=== PATIENT | male | born 1990 | race Caucasian/White ===

== ENCOUNTER → 2016-08-04 | Outpatient (CLI) | payer OTHER ==
[~2016-08-04] MED LIST: ADVIL200 M2 PO; NAPROXEN PO; NO MEDICATIONS; PHENERGAN PO
--- NOTE | ~2016-08-04 | US6 ---
[facility] A Service [facility] RADIOLOGY TEXT RESULTS PATIENT: VEE BATEMAN LOCATION: [facility] : [birth year] UNIT #: [id number] AGE: [address]: Carey Broussard APRN SEX: M ORDER DR: [id number] [place] [id number] O MR#: [id number] Acc #: [id number] NAME: VEE BATEMAN : 1990 SEX: M STUDY DATE/TIME: 08/04/2016 9:18 UNIT: [facility] ROOM: STUDY DESCRIPTION: US Abdominal Limited Attending Physician: Carey Broussard A.P.R.N. Referring Physician: Carey Broussard A.P.R.N. Ordering Physician: Carey Broussard A.P.R.N. Primary Care Physician: Carey Broussard A.P.R.N. MEDICAL IMAGING REPORT This report is preliminary unless electronic signature is present. EXAM Right upper quadrant ultrasound, 08/04/16 HISTORY A 34-month history of right upper quadrant abdominal pain. FINDINGS Hepatic parenchymal echotexture is normal. There is no intrahepatic biliary ductal dilatation. Survey images of the pancreas are normal. No hepatic mass is seen. The gallbladder is normal without stone, wall thickening of pericholecystic fluid. The extrahepatic common duct is normal in caliber. The right kidney is normal in size and echotexture without solid mass, calcification or hydronephrosis. IMPRESSION Technically difficult due to body habitus, but otherwise negative right upper quadrant ultrasound. Dictated by... Hasmukh Young M.D. THIS IS AN ELECTRONICALLY VERIFIED REPORT Hasmukh Young M.D. at 08/08/2016 12:14 PM GLADYS/liliam TD: 08/04/2016 12:18 JOB #: [id number] [facility] A Service [facility] RADIOLOGY TEXT RESULTS PATIENT: VEE ABTEMAN LOCATION: [facility] #: [id number] : [birth year] UNIT #: [id number] AGE: [address]: Carey Broussard APRN SEX: M ORDER DR: MEDICAL IMAGING REPORT Page 1 of 1
== END | disposition home or self-care (01) ==
LOC: SGUS 08:52
DX: R10.11 Right upper quadrant pain (principal)
CPT/HCPCS: 76705